=== PATIENT | female | born 1930 | race African-American/Black ===

== ENCOUNTER 2016-12-09 00:13 | Inpatient (IN) | payer OTHER, MEDICAID ==
[~2016-12-09] VITALS: Ht 162.6 cm; Wt 54.9 kg
[~2016-12-09 00:13] MED LIST: ASPI-864 PO; HYDR25TA PO; MEMA10TA11 PO
[2016-12-09] MEDS ORDERED: SODIUM CHLORIDE 0.9% 500 ML IV ONE (00:43)
[2016-12-09 01:02] LABS: BASOPHILS % 0.2 % (0.0-2.0); EOSINOPHILS % 0.3 % (0.0-5.0); HEMATOCRIT. 46.2 % (36.0-48.0); HEMOGLOBIN. 15.7 g/dL (12.0-16.0); LYMPHOCYTES % 21.1 % (20.0-50.0); MEAN CORPUSCULAR HEMOGLOBIN 31.1 pg (28.0-32.0); MEAN CORPUSCULAR VOLUME 91.5 fL (81.0-99.0); MEAN PLATELET VOLUME 8.7 fl (7.4-10.4); NEUTROPHILS % 72.4 % (40.0-76.0); PLATELET 225 x1000/uL (130-400); RED BLOOD CELL COUNT 5.05 mill/uL (4.2-5.4); RED CELL DISTRIBUTION WIDTH 14.4 % (11.6-14.6)
[2016-12-09 01:10] LABS: INR 1.1; PROTHROMBIN TIME 11.4 sec
[2016-12-09 01:20] LABS: CARBON DIOXIDE 27 mEq/L (21-32); CHLORIDE 106 mEq/L (98-107); TROPONIN I 0.23 ng/mL (0.00-0.04)
[2016-12-09 09:00] VITALS: BP 159/100
[2016-12-09] MEDS: FAMOTIDINE 20MG TABLET PO SCH (11:19)
[2016-12-09] MEDS: ASPIRIN 325MG TABLET PO SCH (11:19)
[2016-12-09] MEDS: MEMANTINE HCL 10MG TABLET PO SCH (11:19)
[2016-12-09] MEDS: ENOXAPARIN 30MG/0.3ML SYR SUBCUT SCH (11:20)
[2016-12-09 12:00] VITALS: BP 150/87
[2016-12-09 12:32] LABS: TROPONIN I 0.25 ng/mL (0.00-0.04)
[2016-12-09 15:50] LABS: CLARITY URINE CLEAR (CLEAR); COLOR URINE YELLOW (YELLOW); GLUCOSE URINE NEGATIVE (NEGATIVE); KETONES URINE NEGATIVE (NEGATIVE); LEUKOCYTE ESTERASE URINE NEGATIVE (NEGATIVE); NITRITE URINE NEGATIVE (NEGATIVE); OCCULT BLOOD URINE NEGATIVE (NEGATIVE); PROTEIN URINE NEGATIVE (NEGATIVE); SPECIFIC GRAVITY URINE 1.013 (1.005-1.030)
[2016-12-09 16:00] VITALS: BP 160/90
[2016-12-09] MEDS ORDERED: CLONIDINE 0.1MG TABLET PO PRN (17:30)
[2016-12-09 20:00] VITALS: BP 167/91
[2016-12-09] MEDS ORDERED: FAMOTIDINE 20MG TABLET PO SCH (21:00)
[2016-12-10] VITALS: BP 161/95
[2016-12-10 04:00] VITALS: BP 133/87
[2016-12-10 05:54] LABS: BASOPHILS % 0.4 % (0.0-2.0); EOSINOPHILS % 0.6 % (0.0-5.0); HEMATOCRIT. 37.7 % (36.0-48.0); HEMOGLOBIN. 12.9 g/dL (12.0-16.0); LYMPHOCYTES % 25.1 % (20.0-50.0); MEAN CORPUSCULAR HEMOGLOBIN 31.2 pg (28.0-32.0); MEAN CORPUSCULAR VOLUME 91.2 fL (81.0-99.0); MEAN PLATELET VOLUME 8.7 fl (7.4-10.4); MONOCYTES % 6.9 % (2.0-8.0); PLATELET 200 x1000/uL (130-400); RED BLOOD CELL COUNT 4.13 mill/uL (4.2-5.4); RED CELL DISTRIBUTION WIDTH 14.7 % (11.6-14.6)
[2016-12-10 08:00] VITALS: BP 143/87
[2016-12-10] MEDS: ENOXAPARIN 30MG/0.3ML SYR SUBCUT SCH (09:00)
[2016-12-10] MEDS: MEMANTINE HCL 10MG TABLET PO SCH (09:00)
[2016-12-10] MEDS: FAMOTIDINE 20MG TABLET PO SCH (09:00)
[2016-12-10] MEDS: ASPIRIN 325MG TABLET PO SCH (09:00)
[2016-12-10 12:00] VITALS: BP 130/81
[2016-12-10] MEDS: AMLODIPINE 5MG TABLET PO SCH ×2 (13:46→21:54)
[2016-12-10] MEDS ORDERED: FELO10TA PO (15:00)
[2016-12-10 16:00] VITALS: BP 132/85
[2016-12-10 20:00] VITALS: BP 145/84
[2016-12-10] MEDS ORDERED: LACTULOSE 20G/30ML UDC PO PRN (21:00)
[2016-12-11] VITALS: BP 135/76
[2016-12-11 04:00] VITALS: BP 153/81
[2016-12-11 06:47] LABS: BASOPHILS % 0.4 % (0.0-2.0); EOSINOPHILS % 0.9 % (0.0-5.0); HEMATOCRIT. 38.4 % (36.0-48.0); LYMPHOCYTES % 39.7 % (20.0-50.0); MEAN CORPUSCULAR HEMOGLOBIN 30.8 pg (28.0-32.0); MEAN PLATELET VOLUME 8.9 fl (7.4-10.4); MONOCYTES % 6.4 % (2.0-8.0); NEUTROPHILS % 52.6 % (40.0-76.0); PLATELET 194 x1000/uL (130-400); RED BLOOD CELL COUNT 4.22 mill/uL (4.2-5.4); RED CELL DISTRIBUTION WIDTH 14.2 % (11.6-14.6)
[2016-12-11 08:00] VITALS: BP 144/80
[2016-12-11] MEDS: MEMANTINE HCL 10MG TABLET PO SCH (08:35)
[2016-12-11] MEDS: FAMOTIDINE 20MG TABLET PO SCH (08:35)
[2016-12-11] MEDS: ASPIRIN 325MG TABLET PO SCH (08:35)
[2016-12-11] MEDS: AMLODIPINE 5MG TABLET PO SCH ×2 (08:36→21:44)
[2016-12-11] MEDS: ENOXAPARIN 30MG/0.3ML SYR SUBCUT SCH (08:36)
[2016-12-11 12:00] VITALS: BP 131/76
[2016-12-11 16:00] VITALS: BP 146/88
[2016-12-11 20:00] VITALS: BP 134/76
[2016-12-12] VITALS: BP 158/98
[2016-12-12 04:00] VITALS: BP 148/84
[2016-12-12 08:00] VITALS: BP 168/102
[2016-12-12] MEDS: ASPIRIN 325MG TABLET PO SCH (08:29)
[2016-12-12] MEDS: ENOXAPARIN 30MG/0.3ML SYR SUBCUT SCH (08:29)
[2016-12-12] MEDS: AMLODIPINE 5MG TABLET PO SCH (08:29)
[2016-12-12] MEDS: MEMANTINE HCL 10MG TABLET PO SCH (08:29)
[2016-12-12] MEDS: FAMOTIDINE 20MG TABLET PO SCH (08:29)
[2016-12-12 12:00] VITALS: BP 136/83
[2016-12-12 14:29] VITALS: BP 136/83
[2016-12-12 16:00] VITALS: BP 156/91
== END 2016-12-12 16:55 | disposition home or self-care (01) | DRG 73 ==
LOC: ER 00:17 → 7WST 06:15 → EDBEDREQ 06:16 → EDBEDREQTM 06:16 → ENRESERV 07:09
PROVIDERS: ADMIT Ophthalmology; ATTEND Internal Medicine
DX: G90.8 Other disorders of autonomic nervous system (principal); N17.0 Acute kidney failure with tubular necrosis; F03.90 Unspecified dementia, unspecified severity, without behavioral disturbance, psychotic disturbance, mood disturbance, and anxiety; K59.00 Constipation, unspecified; I11.9 Hypertensive heart disease without heart failure; Z66 Do not resuscitate; Z79.899 Other long term (current) drug therapy; Z79.82 Long term (current) use of aspirin; Z86.73 Personal history of transient ischemic attack (TIA), and cerebral infarction without residual deficits
CPT/HCPCS: 36415; 70450; 71010; 80048; 80053; 80061; 81003; 83880; 84443; 84484; 85025; 85610; 87040; 93005; 93306; 93880; 96360; 97110; 97162; 97166; 97530; 99285; J1650; J7030